=== PATIENT | male | born 1945 | race African-American/Black ===

== ENCOUNTER 2021-07-08 07:34 | Inpatient (IN) | payer MEDICARE ==
[~2021-07-08] VITALS: Ht 172.7 cm; Wt 85.7 kg
[~2021-07-08 07:34] MED LIST: LISI10TA PO; METF-380 PO; PRV20T GT
[2021-07-08] MEDS ORDERED: cefTRIAXone 1 GM PRE-MIX 50 ML IV ONE (08:00)
[2021-07-08] MEDS ORDERED: AZITHROMYCIN INJECTION 500 MG in NS (IVPB) 250 ML IV ONE (08:00)
[2021-07-08] MEDS ORDERED: NS IV 1000 ML 1,000 ML IV SCH ×2 (08:00→08:45)
--- NOTE | 2021-07-08 08:00 | ED Respiratory ---
General Chief Complaint: Respiratory Problems Stated Complaint: SOB Source: patient, spouse Exam Limitations: no limitations History of Present Illness Date Seen by Provider: July 08, 2021 Time Seen by Provider: 07:39 Initial Comments The patient presents to the ER by EMS from [facility] with chief complaint of shortness of air starting this morning. He felt a rattle in his chest. He has had an occasional cough nonproductive today. No fevers or chills chest pain nausea vomiting or diarrhea. He does have a history of chronic kidney disease followed by Dr. Enrique and primary care by Dr. Thomason. He is not on blood thinners. He has not had any recent periods of immobility, hemoptysis or leg swelling. No unexpected weight gain. He is not on a diuretic. He take his lisinopril this morning but he says he forgot to take his terazosin last night. EMS remarks that his oxygen saturations were 88% when they arrived and he had diminished bilateral breath sounds so they gave him a DuoNeb and after which his breath sounds improved as well as his oxygen saturations improved to the mid 90s. He quit smoking 10 years ago but still uses a vaporizer daily. Allergies and Home Medications Allergies Coded Allergies: No Known Drug Allergies (Unverified , 09/07/11) Patient Home Medication List Home Medication List Reviewed: Yes Lisinopril (Prinivil) 10 Mg Tablet, 10 MG PO, (Reported) Entered as Reported by: RAUL FARRIS on 09/07/11414 Metformin Hcl (Metformin 1000 Mg) 1,000 Mg Tablet, 1 EACH PO BID WITH MEALS, (Reported) Entered as Reported by: RAUL FARRIS on 09/07/11414 Pravastatin Sod (Pravachol (Non-Formulary)) 20 Mg Tab, 20 MG GT, (Reported) Entered as Reported by: RAUL FARRIS on 09/07/11414 Review of Systems Review of Systems Constitutional: No chills, No fever; malaise EENTM: No ear discharge, No ear pain Respiratory: cough; No phlegm; short of breath; No wheezing Past Jymbbhl-Wcmlzs-Gjpcur Hx Patient Social History Tobacco Use?: No Use of E-Cig and/or Vaping dev: Yes E-Cig or Vaping type used: Nicotine Use of E-Cig and/or Vaping Brown: Current Everyday User Substance use?: No Alcohol Use?: Yes Alcohol type: Hard Liquor Immunizations Up To Date Influenza Vaccine Up-to-Date: No; Not Current First/Initial COVID19 Vaccinat: N/A Second COVID19 Vaccination Gasper: N/A Third COVID19 Vaccination Date: N/A COVID19 Vaccine Data Entry Processor: N/A Physical Exam Vital Signs - First Documented 07/08/21 07:35 Temp 36.5 Pulse 121 Resp 26 B/P (MAP) 208/105 (139) Pulse Ox 94 O2 Delivery Room Air Capillary Refill : Height: '" Weight: lbs. oz. kg; BMI Method:Stated General Appearance: WD/WN, mild distress Eyes: Bilateral Eye Normal Inspection, Bilateral Eye PERRL, Bilateral Eye EOMI HEENT: PERRL/EOMI, normal ENT inspection Neck: full range of motion, supple, normal inspection Respiratory: respiratory distress (Mild, respiratory rate of 22), decreased breath sounds, crackles (Left base); No wheezing Cardiovascular: normal peripheral pulses, regular rate, rhythm, tachycardia (115) Gastrointestinal: normal bowel sounds, non tender, soft Extremities: non-tender, normal inspection, normal capillary refill Neurologic/Psychiatric: alert, normal mood/affect, oriented x 3 Skin: normal color, warm/dry Focused Exam Lactate Level 07/08/21 08:15: Lactic Acid Level 1.39 Lactic Acid Level Laboratory Tests Test 07/08/21 08:15 Lactic Acid Level 1.39 MMOL/L (0.50-2.00) Progress/Results/Core Measures Suspected Sepsis SIRS Temperature: Pulse: Respiratory Rate: Laboratory Tests 07/08/21 07:40: White Blood Count 7.1 Blood Pressure / Mean: 07/08/21 08:15: Lactic Acid Level 1.39 Laboratory Tests 07/08/21 07:40: Creatinine 1.64H, INR Comment 0.9, Platelet Count 226, Total Bilirubin 0.4 Results/Orders Lab Results Laboratory Tests Test 07/08/21 07:40 07/08/21 08:15 07/08/21 08:18 07/08/21 09:57 Range/Units White Blood Count 7.1 4.3-11.0 10^3/uL Red Blood Count 4.34 4.30-5.52 10^6/uL Hemoglobin 13.5 13.3-17.7 g/dL Hematocrit 42 40-54 % Mean Corpuscular Volume 97 80-99 fL Mean Corpuscular Hemoglobin 31 25-34 pg Mean Corpuscular Hemoglobin Concent 32 32-36 g/dL Red Cell Distribution Width 13.2 10.0-14.5 % Platelet Count 226 130-400 10^3/uL Mean Platelet Volume 10.7 9.0-12.2 fL Immature Granulocyte % (Auto) 0 % Neutrophils (%) (Auto) 69 42-75 % Lymphocytes (%) (Auto) 23 12-44 % Monocytes (%) (Auto) 7 0-12 % Eosinophils (%) (Auto) 1 0-10 % Basophils (%) (Auto) 0 0-10 % Neutrophils # (Auto) 4.9 1.8-7.8 10^3/uL Lymphocytes # (Auto) 1.7 1.0-4.0 10^3/uL Monocytes # (Auto) 0.5 0.0-1.0 10^3/uL Eosinophils # (Auto) 0.1 0.0-0.3 10^3/uL Basophils # (Auto) 0.0 0.0-0.1 10^3/uL Immature Granulocyte # (Auto) 0.0 0.0-0.1 10^3/uL Prothrombin Time 12.6 12.2-14.7 SEC INR Comment 0.9 0.8-1.4 Activated Partial Thromboplast Time 33 24-35 SEC D-Dimer 0.72 H 0.00-0.49 UG/ML Sodium Level 144 135-145 MMOL/L Potassium Level 4.6 3.6-5.0 MMOL/L Chloride Level 106 98-107 MMOL/L Carbon Dioxide Level 22 21-32 MMOL/L Anion Gap 16 H 5-14 MMOL/L Blood Urea Nitrogen 24 H 7-18 MG/DL Creatinine 1.64 H 0.60-1.30 MG/DL Estimat Glomerular Filtration Rate 43 BUN/Creatinine Ratio 15 Glucose Level 155 H 70-105 MG/DL Calcium Level 9.6 8.5-10.1 MG/DL Corrected Calcium 9.4 8.5-10.1 MG/DL Total Bilirubin 0.4 0.1-1.0 MG/DL Aspartate Amino Transf (AST/SGOT) 70 H 5-34 U/L Alanine Aminotransferase (ALT/SGPT) 55 0-55 U/L Alkaline Phosphatase 50 40-136 U/L Troponin I 0.034 H <0.028 NG/ML C-Reactive Protein High Sensitivity 0.15 0.00-0.50 MG/DL B-Type Natriuretic Peptide 128.9 H <100.0 PG/ML Total Protein 7.1 6.4-8.2 GM/DL Albumin 4.3 3.2-4.5 GM/DL Procalcitonin 0.04 <0.10 NG/ML Lactic Acid Level 1.39 0.50-2.00 MMOL/L Influenza Type A (RT-PCR) Not Detected Not Detecte Influenza Type B (RT-PCR) Not Detected Not Detecte SARS-CoV-2 RNA (RT-PCR) Not Detected Not Detecte Blood Gas Puncture Site RIGHT RAD Blood Gas Patient Temperature 36.5 Arterial Blood pH 7.39 7.37-7.43 Arterial Blood Partial Pressure CO2 38 35-45 MMHG Arterial Blood Partial Pressure O2 63 L 79-93 MMHG Arterial Blood HCO3 23 23-27 MMOL/L Arterial Blood Total CO2 23.7 21.0-31.0 MMOL/L Arterial Blood Oxygen Saturation 91 L 94-100 % Arterial Blood Base Excess -1.9 -2.5-2.5 MMOL/L Jon Test YES-POS Blood Gas Ventilator Setting NO Blood Gas Inspired Oxygen ROOM AIR Urine Color YELLOW Urine Clarity CLEAR Urine pH 6.0 5-9 Urine Specific Logan 1.025 H 1.016-1.022 Urine Protein 3+ H NEGATIVE Urine Glucose (UA) NEGATIVE NEGATIVE Urine Ketones NEGATIVE NEGATIVE Urine Nitrite NEGATIVE NEGATIVE Urine Bilirubin NEGATIVE NEGATIVE Urine Urobilinogen 0.2 < = 1.0 MG/DL Urine Leukocyte Esterase NEGATIVE NEGATIVE Urine RBC (Auto) NEGATIVE NEGATIVE Urine RBC RARE /HPF Urine WBC 2-5 /HPF Urine Squamous Epithelial Cells 0-2 /HPF Urine Crystals NONE /LPF Urine Bacteria FEW H /HPF Urine Casts NONE /LPF Urine Mucus NEGATIVE /LPF Urine Culture Indicated YES Test 07/08/21 13:52 Range/Units Troponin I 0.158 H <0.028 NG/ML My Orders Orders - KARLOS ALMANZAR Cbc With Automated Diff (07/08/21 07:52) Comprehensive Metabolic Panel (07/08/21 07:52) Blood Culture (07/08/21 07:52) Sputum Culture (07/08/21 07:52) Urinalysis (07/08/21 07:52) Urine Culture (07/08/21 07:52) Protime With Inr (07/08/21 07:52) Partial Thromboplastin Time (07/08/21 07:52) Chest 1 View, Ap/Pa Only (07/08/21 07:52) Ed Iv/Invasive Line Start (07/08/21 07:52) Ed Iv/Invasive Line Start (07/08/21 07:52) Ekg Tracing (07/08/21 07:52) Troponin I Rafiq (07/08/21 07:52) Vital Signs Adult Sepsis Patie Q15M (07/08/21 07:52) O2 (07/08/21 07:52) Remove Rings In Anticipation O (07/08/21 07:52) Lactic Acid Analyzer (07/08/21 07:52) Influenza A And B By Pcr (07/08/21 07:52) Ns Iv 1000 Ml (Sodium Chloride 0.9%) (07/08/21 08:00) Ceftriaxone 1 Gm Pre-Mix (Rocephin 1 Gm (07/08/21 08:00) Azithromycin Injection (Zithromax Inject (07/08/21 08:00) Covid 19 Inhouse Test (07/08/21 07:52) Bnp [place] (07/08/21 07:52) Hs C Reactive Protein (07/08/21 07:52) Procalcitonin (Pct) (07/08/21 07:52) Arterial Blood Gas (07/08/21 08:18) Ed Iv/Invasive Line Start (07/08/21 08:31) Ns Iv 1000 Ml (Sodium Chloride 0.9%) (07/08/21 08:45) Aspirin Chewable Tablet (Baby Aspirin Ch (07/08/21 11:30) Ct Angio Chest W (07/08/21 11:28) Fibrin Degradation Products (07/08/21 11:28) Iohexol Injection (Omnipaque 350 Mg/Ml 1 (07/08/21 12:00) Received Contrast (Hold Metformin- Contr (07/08/21 12:00) Sodium Chloride Flush (Catheter Flush Sy (07/08/21 12:00) Ns (Ivpb) (Sodium Chloride 0.9% Ivpb Bag (07/08/21 12:00) Troponin I Rafiq (07/08/21 13:51) Labetalol Injection (Normodyne Injection (07/08/21 14:15) Medications Given in ED Current Medications Medications Dose Ordered Sig/Ulises Route Start Time Stop Time Status Last Admin Dose Admin Aspirin 324 mg ONCE ONCE PO 07/08/21 11:30 07/08/21 11:31 DC 07/08/21 12:28 324 MG Azithromycin 500 mg/Sodium Chloride 255 ml @ 250 mls/hr ONCE ONCE IV 07/08/21 08:00 07/08/21 09:01 DC 07/08/21 11:09 250 MLS/HR Ceftriaxone Sodium/Dextrose 50 ml @ 100 mls/hr ONCE ONCE IV 07/08/21 08:00 07/08/21 08:29 DC 07/08/21 10:08 100 MLS/HR Iohexol 100 ml ONCE ONCE IV 07/08/21 12:00 07/08/21 12:01 DC 07/08/21 13:17 74 ML Labetalol HCl 20 mg ONCE ONCE IV 07/08/21 14:15 07/08/21 14:16 DC 07/08/21 14:46 20 MG Sodium Chloride 100 ml ONCE ONCE IV 07/08/21 12:00 07/08/21 12:01 DC 07/08/21 13:17 80 ML Vital Signs/I&O 07/08/21 07:35 Temp 36.5 Pulse 121 Resp 26 B/P (MAP) 208/105 (139) Pulse Ox 94 O2 Delivery Room Air Capillary Refill : Progress Note #1: Time: 07:59 Progress Note Given his presentation I am worried about a pneumonia however being a renal patient will also check some other labs. He has a history of diabetes so we will get an EKG for an atypical angina as well as troponin and BNP. He does not appear to be in fluid overload. We will start with a liter of fluids, septic work-up, Rocephin and azithromycin empirically. Progress Note #2: Time: 11:28 Progress Note He has a marginally detectable troponin and no evidence of pneumonia. Plan to get a CT angiogram to look for pulmonary embolism. We will get him aspirin to chew up and swallow. He is still not having any chest pain. Progress Note #3: Time: 13:46 Progress Note Patient is resting comfortably maintaining oxygen saturations in the upper 90s on room air with nonlabored breathing. He has had no other incidences of coughing. Is been up to go to the bathroom several times without dizziness, shortness of air or coughing fits. Lungs are clear. Rebound I recommend some azithromycin, nasal steroids and Afrin before sleep. Return precautions were given. Follow-up in the next 2 to 4 weeks with primary care for reevaluation ECG Initial ECG Impression Date: July 08, 2021 Initial ECG Impression Time: 08:09 Initial ECG Rate: 116 Initial ECG Rhythm: S.Tach Initial ECG Intervals: Normal Initial ECG Impression: Normal Comment Sinus tachycardia without clinically relevant ST elevation or depression. Diagnostic Imaging Diagonstic Imaging: Xray Plain Films/CT/US/NM/MRI: chest Comments [facility], [place] NAME: RAFFI HAWKINS [facility] REC#: [id number] PT STATUS: REG ER : 1945 PHYSICIAN: KARLOS ALMANZAR MD ADMIT DATE: 07/08/21/ER Draft Date of Exam:07/08/21 CHEST 1 VIEW, AP/PA ONLY Indication: Shortness of breath Frontal chest obtained at 9:04 a.m. and compared to 09/07/2011. Heart and mediastinal silhouette are normal in appearance. The lungs are clear. There is no pneumothorax or pleural fluid. Impression: Negative chest. Dictated on workstation # [id number] Dict: 07/08/21 0904 Trans: 07/08/21 0906 [facility] [id number] Interpreted by: JESS SHIELDS MD Electronically signed by: Reviewed: Reviewed by Me Diagonstic Imaging: CT Plain Films/CT/US/NM/MRI: chest Comments NAME: RAFFI HAWKINS MED REC#: [id number] PT STATUS: REG ER : 1945 PHYSICIAN: KARLOS ALMANZAR MD ADMIT DATE: 07/08/21/ER Draft Date of Exam:07/08/21 CT ANGIO CHEST W INDICATION: Cough, tachycardia, hypertension. TECHNIQUE: Multiple contiguous axial images were obtained through the chest after uneventful bolus administration of intravenous contrast. 3D reconstructed CTA MIP acquisitions were also performed. Auto Exposure Controls were utilized during the CT exam to meet ALARA standards for radiation dose reduction. COMPARISON: There is no previous study for comparison. FINDINGS: The pulmonary parenchymal vessels are well opacified with no CT evidence of pulmonary emboli. The thoracic aorta shows diffuse plaquing but no evidence of dissection or aneurysm. Great vessel origins are patent. There are no enlarged mediastinal or hilar nodes. There are no enlarged axillary nodes or chest wall masses. There are small bilateral pleural effusions. Visualized portions of the upper abdomen demonstrate fatty infiltration of the liver. Lung parenchymal windows demonstrate some motion artifact. There is a calcified granuloma in the right lower lobe. There is mild dependent atelectatic change in the lung bases on both sides. There is no douglas consolidation. There is a small nodule along the minor fissure on the right side, measuring about 4 x 5 mm. Nodules of this size do not necessarily require follow-up unless the patient is at high clinical risk. IMPRESSION: No CT evidence of pulmonary emboli or aortic dissection or aneurysm. There are small bilateral pleural effusions. There is some mild bibasilar atelectasis. There is a small calcified granuloma in the right lower lobe. There is a small 5 x 4 mm noncalcified pulmonary nodule in the right lung along the minor fissure, nodules of this size do not require follow-up unless the patient is at high clinical risk. There is incidental fatty infiltration of the liver. Dictated on workstation # [id number] Dict: 07/08/21 1322 Trans: 07/08/21 1336 [id number] Interpreted by: JESS SHIELDS MD Electronically signed by: Reviewed: Reviewed by Ca Departure Communication (Admissions) Time/Spoke to Admitting Phy: 15:[address] Koroma and she agrees to observe the patient on med telemetry. We will write bridge orders. Time/Spoke to Consulting Phy: 15:[address] Collado and he agrees to consult on the case for cardiology. Impression Primary Impression: Allergic rhinitis with postnasal drip Additional Impressions: Dyspnea Qualified Codes: R06.00 - Dyspnea, unspecified Elevated troponin I level Disposition: HOME, SELF-CARE Condition: Stable Admissions Decision to Admit Reason: Admit from ER (General) Decision to Admit/Date: July 08, 2021 Time/Decision to Admit Time: 15:15 Departure-Patient Inst. Referrals: BRUNA THOMASON MD, ABDUL M MD (PCP) Primary Care Physician Patient Instructions: Cough, Adult (DC) Add. Discharge Instructions: I suspect your cough this morning may have been caused by postnasal drip from a llergic rhinitis or a virus. Azithromycin daily for the next 4 days starting tomorrow will help with the cough. Resume taking your blood pressure medicine at the normal time. Nasal steroid such as Flonase/fluticasone 1 puff each nostril every day for the next 2 weeks. Afrin/oxymetazoline 1 puff each nostril before sleep for nasal congestion for the next 1 to 2 weeks. Make a follow-up appointment with your primary care doctor in the next 2 to 4 weeks for recheck. Return to the ER for shortness of air, chest pain or other worrisome symptoms. All discharge instructions reviewed with patient and/or family. Voiced understanding. Copy Copies To 1: BRUNA THOMASON MD, TITUS J July 08, 2021 08:00
[2021-07-08 08:11] LABS: BASOPHILS % (AUTO) 0 % (0-10); EOSINOPHILS # (AUTO) 0.1 10^3/uL (0.0-0.3); EOSINOPHILS % (AUTO) 1 % (0-10); HEMATOCRIT 42 % (40-54); HEMOGLOBIN 13.5 g/dL (13.3-17.7); LYMPHOCYTES # (AUTO) 1.7 10^3/uL (1.0-4.0); LYMPHOCYTES % (AUTO) 23 % (12-44); MEAN CORPUSCULAR HEMOGLOBIN 31 pg (25-34); MEAN CORPUSCULAR HGB CONC 32 g/dL (32-36); MEAN CORPUSCULAR VOLUME 97 fL (80-99); MEAN PLATELET VOLUME 10.7 fL (9.0-12.2); MONOCYTES # (AUTO) 0.5 10^3/uL (0.0-1.0); MONOCYTES % (AUTO) 7 % (0-12); NEUTROPHILS # (AUTO) 4.9 10^3/uL (1.8-7.8); NEUTROPHILS % (AUTO) 69 % (42-75); PLATELET COUNT 226 10^3/uL (130-400); WHITE BLOOD COUNT 7.1 10^3/uL (4.3-11.0)
[2021-07-08 08:16] LABS: ALBUMIN 4.3 GM/DL (3.2-4.5); POTASSIUM 4.6 MMOL/L (3.6-5.0)
[2021-07-08 08:17] LABS: CALCIUM 9.6 MG/DL (8.5-10.1); INR 0.9 (0.8-1.4); PROTHROMBIN TIME PATIENT 12.6 SEC (12.2-14.7)
[2021-07-08 08:19] LABS: TOTAL PROTEIN 7.1 GM/DL (6.4-8.2)
[2021-07-08 08:20] LABS: BILIRUBIN,TOTAL 0.4 MG/DL (0.1-1.0)
[2021-07-08 08:22] LABS: CREATININE SERUM 1.64 MG/DL (0.60-1.30)
[2021-07-08 08:25] LABS: ABG BASE EXCESS -1.9 MMOL/L (-2.5-2.5); ABG OXYGEN SATURATION 91 % (94-100); ABG PCO2 38 MMHG (35-45); ABG PH 7.39 (7.37-7.43); ABG PO2 63 MMHG (79-93); ABG TCO2 23.7 MMOL/L (21.0-31.0); ALLENS TEST YES-POS; INSPIRED O2 ROOM AIR; PATIENT TEMP 36.5; VENTILATOR NO
--- NOTE | 2021-07-08 09:06 | Diagnostic Imaging Report ---
Indication: Shortness of breath Frontal chest obtained at 9:04 a.m. and compared to 09/07/2011. Heart and mediastinal silhouette are normal in appearance. The lungs are clear. There is no pneumothorax or pleural fluid. Impression: Negative chest. Dictated by: Dictated on workstation # [id number]
[2021-07-08 10:15] LABS: BILIRUBIN,URINE NEGATIVE (NEGATIVE); CLARITY,URINE CLEAR; COLOR,URINE YELLOW; GLUCOSE, URINE (UA) NEGATIVE (NEGATIVE); KETONES,URINE NEGATIVE (NEGATIVE); LEUKOCYTE ESTERASE ,URINE NEGATIVE (NEGATIVE); NITRITE,URINE NEGATIVE (NEGATIVE); PROTEIN,URINE 3+ (NEGATIVE)
[2021-07-08 10:32] LABS: BACTERIA,URINE FEW /HPF; RBC,URINE RARE /HPF; SQUAMOUS EPITHELIAL CELL,UR 0-2 /HPF
[2021-07-08] MEDS ORDERED: ASPIRIN 81 MG CHEW (CHILDREN'S ASA) PO ONE (11:30)
[2021-07-08] MEDS ORDERED: CATHETER FLUSH 10 ML SYR IV PRN (12:00)
[2021-07-08] MEDS ORDERED: NS 100 ML (IVPB) BAG IV ONE (12:00)
[2021-07-08] MEDS ORDERED: IOHEXOL 350 MG/ML 100 ML (OMNIPAQUE 350) VIAL IV ONE (12:00)
[2021-07-08] MEDS ORDERED: HOLD METFORMIN - RECEIVED CONTRAST 20 ML VIAL IV SCH (12:00)
--- NOTE | 2021-07-08 13:36 | Diagnostic Imaging Report ---
INDICATION: Cough, tachycardia, hypertension. TECHNIQUE: Multiple contiguous axial images were obtained through the chest after uneventful bolus administration of intravenous contrast. 3D reconstructed CTA MIP acquisitions were also performed. Auto Exposure Controls were utilized during the CT exam to meet ALARA standards for radiation dose reduction. COMPARISON: There is no previous study for comparison. FINDINGS: The pulmonary parenchymal vessels are well opacified with no CT evidence of pulmonary emboli. The thoracic aorta shows diffuse plaquing but no evidence of dissection or aneurysm. Great vessel origins are patent. There are no enlarged mediastinal or hilar nodes. There are no enlarged axillary nodes or chest wall masses. There are small bilateral pleural effusions. Visualized portions of the upper abdomen demonstrate fatty infiltration of the liver. Lung parenchymal windows demonstrate some motion artifact. There is a calcified granuloma in the right lower lobe. There is mild dependent atelectatic change in the lung bases on both sides. There is no douglas consolidation. There is a small nodule along the minor fissure on the right side, measuring about 4 x 5 mm. Nodules of this size do not necessarily require follow-up unless the patient is at high clinical risk. IMPRESSION: No CT evidence of pulmonary emboli or aortic dissection or aneurysm. There are small bilateral pleural effusions. There is some mild bibasilar atelectasis. There is a small calcified granuloma in the right lower lobe. There is a small 5 x 4 mm noncalcified pulmonary nodule in the right lung along the minor fissure, nodules of this size do not require follow-up unless the patient is at high clinical risk. There is incidental fatty infiltration of the liver. Dictated by: Dictated on workstation # [id number]
[2021-07-08] MEDS ORDERED: LABETALOL HCL 20 MG/4 ML VIAL IV ONE (14:15)
[2021-07-08] MEDS ORDERED: LOSARTAN 25 MG (COZAAR) TAB PO SCH (16:30)
--- NOTE | 2021-07-08 16:36 | Consultation-Cardiology ---
HPI-Cardiology Cardiology Consultation Date of Consultation 07/08/21 Date of Admission Time Seen by Provider: 16:31 Indication: Elevated troponin HPI 76 years old gentleman with history of COPD, hypertension. Patient was at home when he became suddenly short of breath and was having gurgling sound from his breathing. His called EMS, by the time they arrived he was feeling better, he was given inhaler and brought to the emergency room. On my evaluation he was laying down in bed comfortably, denied any active pain or discomfort. No shortness of breath. He was noted to have elevation in troponin level that increased. Denied any chest pain. Home Medications & Allergies Allergies: Coded Allergies: No Known Drug Allergies (Unverified , 09/07/11) Home Medication List Reviewed: Yes UWY-[id number]-Wypfct Hx Patient Social History Marital Status: Employed/Student: retired Have you traveled recently?: No Alcohol Use?: Yes Past Medical History Discussed below Family Medical History Family Medical Hx Noncontributory Review of Systems-General Review of Systems Constitutional: see HPI; No chills, No fever; malaise EENTM: see HPI; No ear discharge, No ear pain Respiratory: see HPI, cough, dyspnea on exertion; No hemoptysis, No orthopnea, No phlegm; short of breath; No stridor; wheezing; No other Cardiovascular: no symptoms reported, see HPI; No chest pain, No edema, No Hx of Intervention, No palpitations, No syncope, No vascular heart diseas, No other Gastrointestinal: no symptoms reported, see HPI Genitourinary: no symptoms reported, see HPI Musculoskeletal: no symptoms reported, see HPI Skin: no symptoms reported, see HPI Psychiatric/Neurological: No Symptoms Reported, See HPI Reviewed Test Results Reviewed Test Results Lab Laboratory Tests Test 07/08/21 07:40 07/08/21 08:15 07/08/21 08:18 07/08/21 09:57 Range/Units White Blood Count 7.1 4.3-11.0 10^3/uL Red Blood Count 4.34 4.30-5.52 10^6/uL Hemoglobin 13.5 13.3-17.7 g/dL Hematocrit 42 40-54 % Mean Corpuscular Volume 97 80-99 fL Mean Corpuscular Hemoglobin 31 25-34 pg Mean Corpuscular Hemoglobin Concent 32 32-36 g/dL Red Cell Distribution Width 13.2 10.0-14.5 % Platelet Count 226 130-400 10^3/uL Mean Platelet Volume 10.7 9.0-12.2 fL Immature Granulocyte % (Auto) 0 % Neutrophils (%) (Auto) 69 42-75 % Lymphocytes (%) (Auto) 23 12-44 % Monocytes (%) (Auto) 7 0-12 % Eosinophils (%) (Auto) 1 0-10 % Basophils (%) (Auto) 0 0-10 % Neutrophils # (Auto) 4.9 1.8-7.8 10^3/uL Lymphocytes # (Auto) 1.7 1.0-4.0 10^3/uL Monocytes # (Auto) 0.5 0.0-1.0 10^3/uL Eosinophils # (Auto) 0.1 0.0-0.3 10^3/uL Basophils # (Auto) 0.0 0.0-0.1 10^3/uL Immature Granulocyte # (Auto) 0.0 0.0-0.1 10^3/uL Prothrombin Time 12.6 12.2-14.7 SEC INR Comment 0.9 0.8-1.4 Activated Partial Thromboplast Time 33 24-35 SEC D-Dimer 0.72 H 0.00-0.49 UG/ML Sodium Level 144 135-145 MMOL/L Potassium Level 4.6 3.6-5.0 MMOL/L Chloride Level 106 98-107 MMOL/L Carbon Dioxide Level 22 21-32 MMOL/L Anion Gap 16 H 5-14 MMOL/L Blood Urea Nitrogen 24 H 7-18 MG/DL Creatinine 1.64 H 0.60-1.30 MG/DL Estimat Glomerular Filtration Rate 43 BUN/Creatinine Ratio 15 Glucose Level 155 H 70-105 MG/DL Calcium Level 9.6 8.5-10.1 MG/DL Corrected Calcium 9.4 8.5-10.1 MG/DL Total Bilirubin 0.4 0.1-1.0 MG/DL Aspartate Amino Transf (AST/SGOT) 70 H 5-34 U/L Alanine Aminotransferase (ALT/SGPT) 55 0-55 U/L Alkaline Phosphatase 50 40-136 U/L Troponin I 0.034 H <0.028 NG/ML C-Reactive Protein High Sensitivity 0.15 0.00-0.50 MG/DL B-Type Natriuretic Peptide 128.9 H <100.0 PG/ML Total Protein 7.1 6.4-8.2 GM/DL Albumin 4.3 3.2-4.5 GM/DL Procalcitonin 0.04 <0.10 NG/ML Lactic Acid Level 1.39 0.50-2.00 MMOL/L Influenza Type A (RT-PCR) Not Detected Not Detecte Influenza Type B (RT-PCR) Not Detected Not Detecte SARS-CoV-2 RNA (RT-PCR) Not Detected Not Detecte Blood Gas Puncture Site RIGHT RAD Blood Gas Patient Temperature 36.5 Arterial Blood pH 7.39 7.37-7.43 Arterial Blood Partial Pressure CO2 38 35-45 MMHG Arterial Blood Partial Pressure O2 63 L 79-93 MMHG Arterial Blood HCO3 23 23-27 MMOL/L Arterial Blood Total CO2 23.7 21.0-31.0 MMOL/L Arterial Blood Oxygen Saturation 91 L 94-100 % Arterial Blood Base Excess -1.9 -2.5-2.5 MMOL/L Jon Test YES-POS Blood Gas Ventilator Setting NO Blood Gas Inspired Oxygen ROOM AIR Urine Color YELLOW Urine Clarity CLEAR Urine pH 6.0 5-9 Urine Specific Allen 1.025 H 1.016-1.022 Urine Protein 3+ H NEGATIVE Urine Glucose (UA) NEGATIVE NEGATIVE Urine Ketones NEGATIVE NEGATIVE Urine Nitrite NEGATIVE NEGATIVE Urine Bilirubin NEGATIVE NEGATIVE Urine Urobilinogen 0.2 < = 1.0 MG/DL Urine Leukocyte Esterase NEGATIVE NEGATIVE Urine RBC (Auto) NEGATIVE NEGATIVE Urine RBC RARE /HPF Urine WBC 2-5 /HPF Urine Squamous Epithelial Cells 0-2 /HPF Urine Crystals NONE /LPF Urine Bacteria FEW H /HPF Urine Casts NONE /LPF Urine Mucus NEGATIVE /LPF Urine Culture Indicated YES Test 07/08/21 13:52 07/08/21 16:26 Range/Units Troponin I 0.158 H <0.028 NG/ML Glucometer 122 H 70-110 MG/DL Physical Exam Physical Exam Vital Signs Vital Signs - First Documented 07/08/21 07:35 Temp 36.5 Pulse 121 Resp 26 B/P (MAP) 208/105 (139) Pulse Ox 94 O2 Delivery Room Air Capillary Refill : Less Than 3 Seconds Height, Weight, BMI Height: '" Weight: lbs. oz. kg; 27.00 BMI Method:Stated General Appearance: No Apparent Distress, WD/WN Eyes: Bilateral Eye Normal Inspection, Bilateral Eye PERRL, Bilateral Eye EOMI HEENT: PERRL/EOMI, TMs Normal, Normal ENT Inspection, Pharynx Normal, Moist Mucous Membranes Neck: Full Range of Motion, Normal Inspection, Non Tender, Supple, Carotid Bruit Respiratory: Chest Non Tender, Normal Breath Sounds, No Accessory Muscle Use, No Respiratory Distress Cardiovascular: Regular Rate, Rhythm, No Edema, No Gallop, No JVD, No Murmur, Normal Peripheral Pulses Gastrointestinal: Normal Bowel Sounds, No Organomegaly, No Pulsatile Mass, Non Tender, Soft Back: Normal Inspection, No CVA Tenderness, No Vertebral Tenderness Extremity: Normal Capillary Refill, Normal Inspection, Normal Range of Motion, Non Tender, No Calf Tenderness, No Pedal Edema Neurologic/Psychiatric: Alert, Oriented x3, No Motor/Sensory Deficits, Normal Mood/Affect Skin: Normal Color, Warm/Dry Lymphatic: No Adenopathy A/P-Cardiology Admission Diagnosis Hypertension Elevated troponin, type II myocardial infarction Acute respiratory insufficiency Acute renal insufficiency Assessment/Plan Hypertension, blood pressure is still elevated, initially was 200/100 on arrival to the emergency room. Currently around 1 60-1 70 systolic. I will start Toprol-XL 25 mg daily, losartan 25 mg daily and evaluate tolerance and response Evaluate 2D echo Mild elevation in troponin, no active chest pain or EKG changes. Probably type II myocardial infarction secondary to the shortness of breath with a mild transient hypoxemia reported by ambulance. It could be related to severe hypertension, continue to evaluate the trend and monitor EKG Shortness of breath, transient episode of wheezing and questionable exacerbation of COPD. Given inhaler, currently laying down in bed comfortably, no active wheezing or dyspnea Diabetes mellitus, followed and managed by primary care physician Acute on chronic renal insufficiency, monitor renal function Tobaccoism, using e-cigarette. Alcoholism, drink almost on a daily basis. PIERRE BALES MD July 08, 2021 16:36
[2021-07-08] MEDS ORDERED: TERA1CAP3 PO (16:55)
[2021-07-08] MEDS ORDERED: ACETAMINOPHEN 325 MG TABLET PO PRN (17:00)
[2021-07-08] MEDS ORDERED: NITROGLYCERIN 0.4 MG SL TABS BTL 25'S SL PRN (17:00)
[2021-07-08] MEDS ORDERED: morphine INJ 4 MG/ML 1 ML (VIAL/SYRINGE) IV PRN (17:00)
[2021-07-08] MEDS ORDERED: CATHETER FLUSH 10 ML SYR IVP PRN (17:00)
[2021-07-08] MEDS ORDERED: ONDANSETRON 4 MG/2 ML (SDV) Z0FRAN IVP PRN (17:00)
[2021-07-08 18:14] VITALS: BP 179/114
[2021-07-08] MEDS ORDERED: RT-ALBUTEROL/IPRATROPIUM 3 ML (DUONEB) VIAL INH PRN (18:30)
[2021-07-08 20:47] VITALS: BP 148/81
[2021-07-08] MEDS: TERAZOSIN 1 MG CAP (HYTRIN) PO SCH (20:54)
[2021-07-08] MEDS: CATHETER FLUSH 10 ML SYR IVP SCH (20:56)
[2021-07-08] MEDS ORDERED: RT-ALBUTEROL/IPRATROPIUM 3 ML (DUONEB) VIAL INH SCH (21:00)
[2021-07-09] VITALS (8 sets, daily range): BP systolic 128–222; BP diastolic 61–106
[2021-07-09 02:09] LABS: BASOPHILS % (AUTO) 1 % (0-10); EOSINOPHILS # (AUTO) 0.1 10^3/uL (0.0-0.3); EOSINOPHILS % (AUTO) 2 % (0-10); HEMATOCRIT 35 % (40-54); HEMOGLOBIN 11.4 g/dL (13.3-17.7); LYMPHOCYTES # (AUTO) 1.7 10^3/uL (1.0-4.0); LYMPHOCYTES % (AUTO) 30 % (12-44); MEAN CORPUSCULAR HEMOGLOBIN 32 pg (25-34); MEAN CORPUSCULAR HGB CONC 33 g/dL (32-36); MEAN CORPUSCULAR VOLUME 96 fL (80-99); MEAN PLATELET VOLUME 10.8 fL (9.0-12.2); MONOCYTES # (AUTO) 0.4 10^3/uL (0.0-1.0); MONOCYTES % (AUTO) 8 % (0-12); NEUTROPHILS # (AUTO) 3.5 10^3/uL (1.8-7.8); NEUTROPHILS % (AUTO) 61 % (42-75); PLATELET COUNT 165 10^3/uL (130-400); WHITE BLOOD COUNT 5.8 10^3/uL (4.3-11.0)
[2021-07-09] MEDS ORDERED: lisINopril 20 MG (PRINIVIL) TABLET ONE (05:10)
[2021-07-09] MEDS: lisINopril 20 MG (PRINIVIL) TABLET PO SCH (05:11)
[2021-07-09] MEDS: CATHETER FLUSH 10 ML SYR IVP SCH ×3 (05:19→23:09)
[2021-07-09 05:50] LABS: POTASSIUM 4.2 MMOL/L (3.6-5.0)
[2021-07-09 05:51] LABS: CALCIUM 8.3 MG/DL (8.5-10.1)
[2021-07-09 05:56] LABS: CREATININE SERUM 1.7 MG/DL (0.60-1.30)
[2021-07-09] MEDS ORDERED: ONDANSETRON 4 MG/2 ML (SDV) Z0FRAN IV PRN (06:15)
[2021-07-09] MEDS ORDERED: FUROSEMIDE 40 MG/4 ML INJ (LASIX) IVP ONE (06:15)
[2021-07-09] MEDS ORDERED: D5 1/2 NS 1000 ML IV SOLUTION 1,000 ML IV PRN (06:15)
[2021-07-09] MEDS ORDERED: ONDANSETRON 4 MG (ZOFRAN) ORAL DISSOLVE TAB SL PRN (06:15)
[2021-07-09] MEDS ORDERED: SENNA W/DOCUSATE (SENOKOT S) TABLET PO PRN (06:15)
[2021-07-09] MEDS ORDERED: LORazepam 1 MG (ATIVAN) TAB PO PRN (06:15)
[2021-07-09] MEDS ORDERED: ANTACID SUSP 30 ML UDC (MYLANTA) PO PRN (06:15)
[2021-07-09] MEDS ORDERED: 1/2 NS IV SOLUTION 1,000 ML IV PRN (06:15)
[2021-07-09] MEDS ORDERED: LORazepam INJ 2 MG/ML (ATIVAN) VIAL IV PRN (06:15)
[2021-07-09] MEDS ORDERED: LORazepam INJ 2 MG/ML (ATIVAN) VIAL IM/IV PRN (06:15)
[2021-07-09] MEDS ORDERED: ASPIRIN E.C. 81 MG (ECOTRIN) TAB PO ONE (06:19)
[2021-07-09] MEDS ORDERED: FUROSEMIDE 40 MG/4 ML INJ (LASIX) ONE (06:20)
[2021-07-09] MEDS ORDERED: SPIRONOLACTONE 25 MG (ALDACTONE) TAB ONE (06:20)
[2021-07-09] MEDS ORDERED: ISOSORBIDE MONONITRATE 30 MG (IMDUR) TAB PO ONE (06:22)
[2021-07-09] MEDS: ISOSORBIDE MONONITRATE 30 MG (IMDUR) TAB PO SCH (06:25)
[2021-07-09] MEDS: SPIRONOLACTONE 25 MG (ALDACTONE) TAB PO SCH (06:25)
[2021-07-09] MEDS: ASPIRIN E.C. 81 MG (ECOTRIN) TAB PO SCH (06:25)
[2021-07-09] MEDS: meTOproloL SUCCINATE 50 MG (TOPROL XL) TAB PO SCH (06:30)
[2021-07-09] MEDS ORDERED: meTOproloL SUCCINATE 50 MG (TOPROL XL) TAB PO ONE (06:30)
--- NOTE | 2021-07-09 08:44 | Cardiology Progress Note ---
Subjective Date Seen by Provider: July 09, 2021 Time Seen by Provider: 08:40 Subjective/Events-last exam Patient was seen at bedside, sitting comfortably, feeling better Had an episode of shortness of breath earlier this morning reported that he has transient episode of hallucination this morning Review of Systems General: No Chills, No Night Sweats, No Fatigue, No Malaise, No Appetite, No Other HEENT: No Head Aches, No Visual Changes, No Eye Pain, No Ear Pain, No Dysphasia, No Sinus Congestion, No Post Nasal Drip, No Sore Throat, No Other Pulmonary: Dyspnea; No Cough, No Pleuritic Chest Pain, No Other Cardiovascular: No: Chest Pain, Palpitations, Orthopnea, Paroxysmal Noc. Dyspnea, Edema, Lt Headedness, Other Focused Exam Lactate Level 07/08/21 08:15: Lactic Acid Level 1.39 Objective-Cardiology Exam Last Set of Vital Signs Vital Signs 07/09/21 07/09/21 07:24 08:28 Temp 36.9 Pulse 69 Resp 18 B/P (MAP) 162/75 (104) Pulse Ox 97 O2 Delivery Room Air O2 Flow Rate 0.00 I&O Intake and Output 07/09/21 00:00 Intake Total 540 ml Balance 540 ml Intake Oral 540 ml # Voids 4 # Bowel Movements 1 Daily Weight Change Yes, 2-13 lbs General: Alert, Oriented X3, Cooperative HEENT: Atraumatic, PERRLA Neck: Supple, No JVD, No Thyromegaly Lungs: Clear to Auscultation, Normal Air Movement Heart: Regular Rate, Normal S1, Normal S2, No Murmurs Abdomen: Normal Bowel Sounds, Soft, No Tenderness, No Hepatosplenomegaly, No Masses Extremities: No Clubbing, No Cyanosis, No Edema, Normal Pulses, No Tenderness/Swelling Skin: No Rashes, No Breakdown, No Significant Lesion Neuro: Normal Gait, Normal Speech, Strength at 5/5 X4 Ext, Normal Tone, Sensation Intact Psych/Mental Status: Mental Status NL, Mood NL Results Lab Laboratory Tests 07/09/21 01:50 07/09/21 04:56 A/P-Cardiology Admission Diagnosis Hypertension Elevated troponin, type II myocardial infarction Acute respiratory insufficiency Acute renal insufficiency Assessment/Plan Congestive heart failure, acute left ventricular systolic dysfunction, unknown etiology. Had mild elevation in troponin level, could be secondary to coronary artery disease versus cardiomyopathy. I am planning to proceed with cardiac catheterization in the morning tomorrow I am considering other causes for cardiomyopathy such as alcoholic cardiomyopathy. Patient was consulted on avoiding alcohol, I am stopping lisinopril at this point and in 48 hours planning to start Entresto. I will use losartan during the transition I added Aldactone and isosorbide to his medication Arranging for LifeVest Hypertension, monitor blood pressure after initiating the medication Shortness of breath, transient episode of wheezing and questionable exacerbation of COPD. Given inhaler, currently laying down in bed comfortably, no active wheezing or dyspnea Diabetes mellitus, followed and managed by primary care physician Acute on chronic renal insufficiency, monitor renal function Tobaccoism, using e-cigarette. Alcoholism, drink almost on a daily basis. Patient need to start on withdrawal protocol. reported some hallucinations this morning PIERRE BALES MD July 09, 2021 08:44
[2021-07-09] MEDS ORDERED: LISI2.5T13 PO (09:10)
[2021-07-09] MEDS ORDERED: TURM538C PO (09:10)
[2021-07-09] MEDS ORDERED: TERA2CAP4 PO (09:10)
[2021-07-09] MEDS ORDERED: FENO145T26 PO (09:10)
[2021-07-09] MEDS ORDERED: ANTI1CAP5 PO (09:10)
[2021-07-09] MEDS ORDERED: METF-399 PO (09:10)
[2021-07-09] MEDS ORDERED: [UNRECOGNIZED DRUG - OTHER] PO (09:10)
[2021-07-09] MEDS ORDERED: LORA10TA7 PO (09:10)
[2021-07-09] MEDS ORDERED: CRANBERRY PO (09:10)
[2021-07-09] MEDS ORDERED: FISH1CAP15 PO (09:10)
[2021-07-09] MEDS ORDERED: MULT-1136 PO (09:10)
[2021-07-09] MEDS ORDERED: ASPI-1238 PO (09:10)
[2021-07-09] MEDS ORDERED: MAGN400T39 PO (09:10)
--- NOTE | 2021-07-09 09:47 | History & Physical-Hospitalist ---
History of Present Illness HPI/Chief Complaint Pt was brought to [facility] ER as his wiife was concerned about his breathing. He is defers all history to his wiife. She states he made a funny noise like a rattle in hiis sleep and that worried her so she brought him to [facility] Er for evaluation. He was found to have an elevated troponin and was admitted forr further work up. He has no complainits today and states he feels much better than yesterday though he is unable to tell me how he felt yesterday. His reports a long history of CKD and HTN but that his current blood pressures are abnormally high for him. He otherwise has no complaints or concerns. Source: patient, family Exam Limitations: no limitations Date Seen 07/09/21 Time Seen by a Provider: 09:44 Attending Physician Wood Levy MD PCP Paradise Enrique MD Referring Physician Date of Admission July 08, 2021 at 15:30 Home Medications & Allergies Home Medications Reviewed patient Home Medication Reconciliation performed by pharmacy medication reconciliations apartment maintenance technician and/or nursing. Patients Allergies have been reviewed. Allergies Allergies Coded Allergies No Known Drug Allergies (Unverified09/07/11) Past Ptguerl-Nhusob-Oeaxrg Hx Patient Social History Marrital Status: Employed/Student: retired Tobacco Use?: No Use of E-Cig and/or Vaping dev: Yes E-Cig or Vaping type used: Nicotine Use of E-Cig and/or Vaping Brown: Current Everyday User Substance use?: No Alcohol Use?: Yes Alcohol type: Hard Liquor Additional alcohol type: GIN Alcohol Frequency: Daily Additional Alcohol Comments: 1/2 PINT EVERY OTHER DAY Pt feels they are or have been: No Immunizations Up To Date First/Initial COVID19 Vaccinat: N/A Second COVID19 Vaccination Gapser: N/A Tetanus Booster (TDap): Unknown Current Status Advance Directives: No Communicates: Verbally Primary Language: Faroese Preferred Spoken Language: Faroese Is interpretation needed?: No Past Medical History Hypertension Family Medical History Reviewed Nursing Family Hx No Pertinent Family Hx Review of Systems ROS-Unable to Obtain: would not really answer answes- deferred to for all questions Constitutional: see HPI Physical Exam Physical Exam Vital Signs Vital Signs - First Documented 07/08/21 07/09/21 07:35 07:24 Temp 36.5 Pulse 121 Resp 26 B/P (MAP) 208/105 (139) Pulse Ox 94 O2 Delivery Room Air O2 Flow Rate 0.00 Capillary Refill : Less Than 3 Seconds Height, Weight, BMI Height: '" Weight: lbs. oz. kg; 28.73 BMI Method:Stated General Appearance: No Apparent Distress, WD/WN Neck: Normal Inspection, Supple Respiratory: Lungs Clear, No Respiratory Distress Cardiovascular: Regular Rate, Rhythm, No JVD, No Murmur Gastrointestinal: Normal Bowel Sounds, Non Tender, Soft Extremity: Normal Capillary Refill, No Calf Tenderness, No Pedal Edema Neurologic/Psychiatric: Alert, Oriented x3, Normal Mood/Affect Skin: Normal Color, Warm/Dry Results Results/Procedures Labs Laboratory Tests 07/08/21 07:40 07/09/21 01:50 07/09/21 04:56 Patient resulted labs reviewed. Imaging: Reviewed Imaging Report Imaging [facility], [place] NAME: RAFFI HAWKINS [facility] REC#: [id number] PT STATUS: ADM Srinath : 1945 PHYSICIAN: KARLOS ALMANZAR MD ADMIT DATE: 07/08/21 Signed Date of Exam:07/08/21 CHEST 1 VIEW, AP/PA ONLY Indication: Shortness of breath Frontal chest obtained at 9:04 a.m. and compared to 09/07/2011. Heart and mediastinal silhouette are normal in appearance. The lungs are clear. There is no pneumothorax or pleural fluid. Impression: Negative chest. Dictated by: Dictated on workstation # [id number] Dict: 07/08/21903 Trans: 07/09/21 113 CV [id number] Interpreted by: JESS SHIELDS MD Electronically signed by: JESS SHIELDS MD 07/09/21 1134 [facility], [place] NAME: RAFFI HAWKINS [facility] REC#: [id number] PT STATUS: ADM Srinath : 1945 PHYSICIAN: KARLOS ALMANZAR MD ADMIT DATE: 07/08/21 Signed Date of Exam:07/08/21 CT ANGIO CHEST W INDICATION: Cough, tachycardia, hypertension. TECHNIQUE: Multiple contiguous axial images were obtained through the chest after uneventful bolus administration of intravenous contrast. 3D reconstructed CTA MIP acquisitions were also performed. Auto Exposure Controls were utilized during the CT exam to meet ALARA standards for radiation dose reduction. COMPARISON: There is no previous study for comparison. FINDINGS: The pulmonary parenchymal vessels are well opacified with no CT evidence of pulmonary emboli. The thoracic aorta shows diffuse plaquing but no evidence of dissection or aneurysm. Great vessel origins are patent. There are no enlarged mediastinal or hilar nodes. There are no enlarged axillary nodes or chest wall masses. There are small bilateral pleural effusions. Visualized portions of the upper abdomen demonstrate fatty infiltration of the liver. Lung parenchymal windows demonstrate some motion artifact. There is a calcified granuloma in the right lower lobe. There is mild dependent atelectatic change in the lung bases on both sides. There is no douglas consolidation. There is a small nodule along the minor fissure on the right side, measuring about 4 x 5 mm. Nodules of this size do not necessarily require follow-up unless the patient is at high clinical risk. IMPRESSION: No CT evidence of pulmonary emboli or aortic dissection or aneurysm. There are small bilateral pleural effusions. There is some mild bibasilar atelectasis. There is a small calcified granuloma in the right lower lobe. There is a small 5 x 4 mm noncalcified pulmonary nodule in the right lung along the minor fissure, nodules of this size do not require follow-up unless the patient is at high clinical risk. There is incidental fatty infiltration of the liver. Dictated by: Dictated on workstation # [id number] Dict: 07/08/21 1322 Trans: 07/08/21 1710 [id number] Interpreted by: JESS SHIELDS MD Electronically signed by: JESS SHIELDS MD 07/08/21 1710 Assessment/Plan Admission Diagnosis NSTEMI Admission Status: Inpatient Order (span 2 midnights) Reason for Inpatient Admission: see below Assessment and Plan NSTEMI Cardiomyopathy HTN Troponins trended up Cardiology consulted, appreciate recs EF 20%, no previously known diagnosis of cardiomyopathy Discussed with Dr Collado- plan is for cath in AM Telemetry CKD Per creaintine was 1.9 last check with GFR of 37 Near that baseline butt actually improved slightly Start IVF given plan for cath in AM Alcohol use Daily use, no evidence of withdrawal Banana Bag Diagnosis/Problems Diagnosis/Problems (1) Tobacco abuse Status: Chronic (2) NSTEMI (non-ST elevated myocardial infarction) Status: Acute (3) Cardiomyopathy Status: Acute Qualifiers: Cardiomyopathy type: other Qualified Codes: I42.8 - Other cardiomyopathies (4) CKD (chronic kidney disease) Status: Chronic Qualifiers: Chronic kidney disease stage 3 subtype: stage 3b (GFR 30-44) (5) HTN (hypertension) Status: Chronic Qualifiers: Hypertension type: primary hypertension Qualified Codes: I10 - Essential (primary) hypertension (6) Alcohol abuse Status: Chronic WOOD LEVY MD July 09, 2021 09:47
[2021-07-09] MEDS ORDERED: NS IV 1000 ML 1,000 ML ONE (10:04)
[2021-07-09] MEDS: NS IV 1000 ML 1,000 ML IV SCH ×2 (10:08→16:20)
[2021-07-09] MEDS: THIAMINE INJECTION 100 MG, FOLIC ACID INJECTION 1 MG, VITAMIN MULTI INJECTION 10 ML, MA... IV SCH ×5 (10:09)
[2021-07-09] MEDS: LOSARTAN 25 MG (COZAAR) TAB PO SCH (10:09)
[2021-07-09] MEDS: TERAZOSIN 1 MG CAP (HYTRIN) PO SCH (22:00)
[2021-07-10] VITALS (13 sets, daily range): BP systolic 132–169; BP diastolic 62–85
[2021-07-10] MEDS: CATHETER FLUSH 10 ML SYR IVP SCH ×3 (05:53→22:01)
[2021-07-10] MEDS: NS IV 1000 ML 1,000 ML IV SCH ×2 (05:53→14:12)
[2021-07-10] MEDS ORDERED: HEParin (CATH LAB) 2,000 ML IV ONE (06:51)
[2021-07-10] MEDS ORDERED: LIDOCAINE 1% INJ 20 ML VIAL ONE (06:51)
[2021-07-10] MEDS: lisINopril 20 MG (PRINIVIL) TABLET PO SCH ×2 (07:47→19:44)
[2021-07-10] MEDS: SPIRONOLACTONE 25 MG (ALDACTONE) TAB PO SCH ×2 (07:47→19:45)
[2021-07-10] MEDS: ASPIRIN E.C. 81 MG (ECOTRIN) TAB PO SCH (07:47)
[2021-07-10] MEDS: LOSARTAN 25 MG (COZAAR) TAB PO SCH ×2 (07:47→19:44)
[2021-07-10] MEDS: ISOSORBIDE MONONITRATE 30 MG (IMDUR) TAB PO SCH ×2 (07:47→19:44)
[2021-07-10] MEDS: meTOproloL SUCCINATE 50 MG (TOPROL XL) TAB PO SCH (08:41)
[2021-07-10] MEDS: THIAMINE INJECTION 100 MG, FOLIC ACID INJECTION 1 MG, VITAMIN MULTI INJECTION 10 ML, MA... IV SCH ×5 (09:26)
--- NOTE | 2021-07-10 13:18 | Cardiology Progress Note ---
Subjective Date Seen by Provider: July 10, 2021 Time Seen by Provider: 13:17 Subjective/Events-last exam Patient was seen at bedside laying down comfortably, feeling better at this time. Review of Systems General: No Chills, No Night Sweats, No Fatigue, No Malaise, No Appetite, No Other HEENT: No Head Aches, No Visual Changes, No Eye Pain, No Ear Pain, No Dysphasia, No Sinus Congestion, No Post Nasal Drip, No Sore Throat, No Other Pulmonary: No Dyspnea, No Cough, No Pleuritic Chest Pain, No Other Cardiovascular: No: Chest Pain, Palpitations, Orthopnea, Paroxysmal Noc. Dyspnea, Edema, Lt Headedness, Other Focused Exam Lactate Level 07/08/21 08:15: Lactic Acid Level 1.39 Objective-Cardiology Exam Last Set of Vital Signs Vital Signs 07/09/21 07/10/21 07:24 11:09 Temp 36.7 Pulse 60 Resp 17 B/P (MAP) 149/71 (97) Pulse Ox 98 O2 Delivery Room Air O2 Flow Rate 0.00 I&O Intake and Output 07/10/21 00:00 Intake Total 3385 ml Output Total 650 ml Balance 2735 ml Intake Oral 1080 ml IV Total 2305 ml Output Urine Total 650 ml # Voids 5 # Bowel Movements 2 General: Alert, Oriented X3, Cooperative HEENT: Atraumatic, PERRLA Neck: Supple, No JVD, No Thyromegaly Lungs: Clear to Auscultation, Normal Air Movement Heart: Regular Rate, Normal S1, Normal S2, No Murmurs Abdomen: Normal Bowel Sounds, Soft, No Tenderness, No Hepatosplenomegaly, No Masses Extremities: No Clubbing, No Cyanosis, No Edema, Normal Pulses, No Tenderness/Swelling Skin: No Rashes, No Breakdown, No Significant Lesion Neuro: Normal Gait, Normal Speech, Strength at 5/5 X4 Ext, Normal Tone, Sensation Intact Psych/Mental Status: Mental Status NL, Mood NL A/P-Cardiology Admission Diagnosis Hypertension Elevated troponin, type II myocardial infarction Acute respiratory insufficiency Acute renal insufficiency Assessment/Plan Congestive heart failure, acute left ventricular systolic dysfunction, unknown etiology. Had mild elevation in troponin level, could be secondary to coronary artery disease versus cardiomyopathy. I am planning to proceed with cardiac catheter ization in the morning tomorrow Planning for cardiac catheterization today. Continue to maximize medical therapy. Hypertension, monitor blood pressure after initiating the medication Shortness of breath, transient episode of wheezing and questionable exacerbation of COPD. Given inhaler, currently laying down in bed comfortably, no active wheezing or dyspnea Diabetes mellitus, followed and managed by primary care physician Acute on chronic renal insufficiency, monitor renal function Tobaccoism, using e-cigarette. Alcoholism, drink almost on a daily basis. Started on alcohol withdrawal protocol PIERRE BALES MD July 10, 2021 13:18
--- NOTE | 2021-07-10 13:20 | Conscious Sedation/ASA ---
Conscious Sedation Pre-Proced Time 13:20 ASA Score 3 For ASA 3 and 4: Consider anesthesia and medical clearance. Also, for patients with a history of failed moderate sedation consider anesthesia. Airway Lungs Heart ASA score ASA 1: a normal healthy patient ASA 2: a patient with a mild systemic disease (mid diabetes, controlled hypertension, obesity x ASA 3: a patient with a severe systemic disease that limits activity (angina, COPD, prior Myocardial infarction) ASA 4: a patient with an incapacitating disease that is a constant threat to life (CHF, renal failure) ASA 5: a moribund patient not expected to survive 24 hrs. (ruptured aneurysm) ASA 6: a declared brain- patient whose organs are being harvested. For emergent operations, add the letter E after the classification Mallampati Classification Grade 3 Sedation Plan Analgesia, Amnesia, Plan communicated to team members, Discussed options with patient/fam, Discussed risks with patient/fam The patient is an appropriate candidate to undergo the planned procedure, sedation, and anesthesia. The patient immediately re-assessed prior to indication. PIERRE BALES MD July 10, 2021 13:20
[2021-07-10] MEDS ORDERED: MIDAZOLAM 5 MG/5 ML (VERSED) VIAL ONE (14:37)
[2021-07-10] MEDS ORDERED: fentaNYL INJ 100 MCG/2 ML AMP ONE (14:37)
[2021-07-10] MEDS ORDERED: HEParin 1000 UNIT/ML (10ML VIAL) FOR BOLUS ONE (14:37)
[2021-07-10] MEDS ORDERED: NITRO DRIP 25000 MCG/D5W 250 ML IV ONE (14:37)
[2021-07-10] MEDS ORDERED: VERAPAMIL 5 MG/2 ML (CALAN) VIAL IV ONE (14:37)
[2021-07-10] MEDS ORDERED: NS IV 1000 ML 1,000 ML ONE (14:38)
--- NOTE | 2021-07-10 15:07 | Cardiac Cath Report ---
Cardiac Cath Report Physician (s)/Power Plant Operator Apprentice (s) Physician PIERRE BALES MD Pre-Procedure Diagnosis Pre-Procedure Diagnosis: Congestive heart failure Post-Procedure Note Procedure Start Date: July 10, 2021 Name of Procedure: Left heart catheterization Findings/Procedure Note PROCEDURE NOTE: 76-year-old gentleman admitted with congestive heart failure, palpitation, shortness of breath. Noted to be in severe cardiomyopathy, had mild elevation in troponin, scheduled for cardiac catheterization. After explaining the procedure to the patient, all pros and cons were explained, all questions were answered. The patient signed the consent and then he was placed on the cardiac catheterization laboratory. Groin was prepped SL fashion local anesthesia was used. Sheath placed in the right radial artery, [place] catheter was advanced to the left ventricular cavity, pressure was measured, pullback LV to aorta was done, engage the right and left coronary system, angiog melia was done. At the end of the procedure the sheath was removed. Vascular band was used FINDINGS: Hemodynamics LV 144/33, end-diastolic pressure of 33 Aorta 138/66 mean of 92 ANATOMY: Left Main is free of obstructive disease Left Anterior Descending has mild disease nonobstructive disease Left Circumflex has mild disease nonobstructive disease Right Coronary Artery is dominant artery with mild disease distally nonobstruc tive disease LV Gram was not done, pressure was measured CONCLUSION: 1. Mild coronary artery disease nonobstructive disease 2. 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 Anesthesia Type: Conscious Sedation Estimated blood loss (mL): 10 ml Contrast Amount: 20 ml Total Radiation Dose: 360 mGy Post-Procedure Diagnosis Post-operative diagnosis: Congestive heart failure, acute left ventricular systolic dysfunction, nonischemic cardiomyopathy Hypertension Hyperlipidemia Chronic kidney disease (1) Tobacco abuse (2) NSTEMI (non-ST elevated myocardial infarction) (3) Cardiomyopathy Qualifiers: Qualified Codes: I42.8 - Other cardiomyopathies (4) CKD (chronic kidney disease) Qualifiers: (5) HTN (hypertension) Qualifiers: Qualified Codes: I10 - Essential (primary) hypertension (6) Alcohol abuse PIERRE BALES MD July 10, 2021 15:06
[2021-07-10] MEDS ORDERED: NS IV 1000 ML 1,000 ML IV SCH (15:15)
--- NOTE | 2021-07-10 15:34 | Progress Note - Hospitalist ---
Subjective HPI/CC On Admission Date Seen by Provider: July 10, 2021 Time Seen by Provider: 10:30 Pt was [facility] to [facility] as his wiife was concerned about his breathing. He is defers all history to his wiife. She states he made a funny noise like a rattle in hiis sleep and that worried her so she brought him to [facility] for evaluation. He was found to have an elevated troponin and was admitted forr further work up. He has no complainits today and states he feels much better than yesterday though he is unable to tell me how he felt yesterday. His reports a long history of CKD and HTN but that his current blood pressures are abnormally high for him. He otherwise has no complaints or concerns. Subjective/Events-last exam Pt reports feeling well. No complaints. He is ready for his cath this afternoon. Focused Exam Lactate Level 07/08/21 08:15: Lactic Acid Level 1.39 Objective Exam Vital Signs Vital Signs Date Time Temp Pulse Resp B/P (MAP) Pulse Ox O2 Delivery O2 Flow Rate FiO2 07/10/21 15:15 146/72 (96) 07/10/21 13:00 61 07/10/21 11:09 36.7 17 98 Room Air 07/09/21 07:24 0.00 Capillary Refill : Less Than 3 Seconds General Appearance: No Apparent Distress, WD/WN Respiratory: Lungs Clear Cardiovascular: Regular Rate, Rhythm, No Murmur Neurologic/Psychiatric: Alert, Oriented x3 Results/Procedures Lab Patient resulted labs reviewed. Imaging: Reviewed Imaging Report Assessment/Plan Assessment and Plan Assess & Plan/Chief Complaint NSTEMI Cardiomyopathy- nonischemic HTN Troponins trended up- cath today Cardiology consulted, appreciate recs EF 20%, no previously known diagnosis of cardiomyopathy Telemetry Will need LifeVest prior to DC CKD Per creatinine was 1.9 last check with GFR of 37 Near that baseline butt actually improved slightly Continue IVF as was given contrast Alcohol use Daily use, no evidence of withdrawal Banana Bag Diagnosis/Problems Diagnosis/Problems (1) Tobacco abuse Status: Chronic (2) NSTEMI (non-ST elevated myocardial infarction) Status: Acute (3) Cardiomyopathy Status: Acute Qualifiers: Cardiomyopathy type: other Qualified Codes: I42.8 - Other cardiomyopathies (4) CKD (chronic kidney disease) Status: Chronic Qualifiers: Chronic kidney disease stage 3 subtype: stage 3b (GFR 30-44) (5) HTN (hypertension) Status: Chronic Qualifiers: Hypertension type: primary hypertension Qualified Codes: I10 - Essential (primary) hypertension (6) Alcohol abuse Status: Chronic Copy Copies To 1: WOOD Giang MD July 10, 2021 15:34
[2021-07-10] MEDS: FUROSEMIDE 40 MG/4 ML INJ (LASIX) IVP SCH (16:16)
[2021-07-10] MEDS: TERAZOSIN 1 MG CAP (HYTRIN) PO SCH (21:09)
[2021-07-11 00:16] VITALS: BP 155/83
[2021-07-11 04:06] VITALS: BP 150/79
[2021-07-11 06:15] LABS: HEMATOCRIT 31 % (40-54); MEAN CORPUSCULAR HEMOGLOBIN 31 pg (25-34); MEAN CORPUSCULAR HGB CONC 32 g/dL (32-36); MEAN CORPUSCULAR VOLUME 97 fL (80-99); MEAN PLATELET VOLUME 10.9 fL (9.0-12.2); PLATELET COUNT 160 10^3/uL (130-400); WHITE BLOOD COUNT 4.2 10^3/uL (4.3-11.0)
[2021-07-11] MEDS: CATHETER FLUSH 10 ML SYR IVP SCH ×2 (06:26→14:00)
[2021-07-11] MEDS: FUROSEMIDE 40 MG/4 ML INJ (LASIX) IVP SCH (06:26)
[2021-07-11 06:37] LABS: POTASSIUM 4.1 MMOL/L (3.6-5.0)
[2021-07-11 06:43] LABS: CREATININE SERUM 1.65 MG/DL (0.60-1.30)
[2021-07-11 07:37] VITALS: BP 153/67
[2021-07-11] MEDS: ASPIRIN E.C. 81 MG (ECOTRIN) TAB PO SCH (08:19)
[2021-07-11] MEDS: meTOproloL SUCCINATE 50 MG (TOPROL XL) TAB PO SCH (08:19)
[2021-07-11] MEDS: ISOSORBIDE MONONITRATE 30 MG (IMDUR) TAB PO SCH (08:19)
[2021-07-11] MEDS: SPIRONOLACTONE 25 MG (ALDACTONE) TAB PO SCH (08:19)
[2021-07-11] MEDS: THIAMINE INJECTION 100 MG, FOLIC ACID INJECTION 1 MG, VITAMIN MULTI INJECTION 10 ML, MA... IV SCH ×5 (08:30)
[2021-07-11] MEDS ORDERED: LISI20TA26 PO (08:56)
[2021-07-11] MEDS ORDERED: ISOS30TA82 PO (08:56)
[2021-07-11] MEDS ORDERED: METO50TA7 PO (08:56)
[2021-07-11] MEDS ORDERED: SPIR25TA5 PO (08:56)
--- NOTE | 2021-07-11 08:59 | Discharge Inst-Simple/Standard ---
Discharge Inst-Standard Discharge Medications New, Converted or Re-Newed RX: Transmitted to Pharmacy Patient Instructions/Follow Up Plan of Care/Instructions/FU: Please continue to take your medications as written. Please follow-up with your primary care doctor in the next week and with Dr. Dias in 2 weeks. Activity as Tolerated: Yes Discharge Diet: Low Sodium Diet, Cardiac Diet Return to The Hospital For: Chest pain, shortness of breath, weakness, leg swelling, if you feel you are getting worse. OWOD LEVY MD July 11, 2021 08:59
[2021-07-11] MEDS ORDERED: FUROSEMIDE 40 MG (LASIX) TAB PO SCH (09:00)
[2021-07-11] MEDS ORDERED: LOSARTAN 50 MG (COZAAR) TAB PO SCH (09:00)
[2021-07-11] MEDS ORDERED: meTOprolol SUCCINATE 100 MG (TOPROL XL) TAB PO SCH (09:00)
[2021-07-11] MEDS ORDERED: LOSARTAN 100 MG (COZAAR) TABLET PO SCH (09:00)
--- NOTE | 2021-07-11 09:02 | Discharge Summary ---
Diagnosis/Chief Complaint Date of Admission July 08, 2021 at 15:30 Date of Discharge Discharge Date: July 11, 2021 Admission Diagnosis NSTEMI Primary Care Paradise Enrique MD Discharge Diagnosis (1) Tobacco abuse Status: Chronic (2) NSTEMI (non-ST elevated myocardial infarction) Status: Acute (3) Cardiomyopathy Status: Acute (4) CKD (chronic kidney disease) Status: Chronic (5) HTN (hypertension) Status: Chronic (6) Alcohol abuse Status: Chronic Discharge Summary Discharge Physical Exam Allergies: Coded Allergies: No Known Drug Allergies (Unverified , 09/07/11) Vitals & I&Os Vital Signs Date Time Temp Pulse Resp B/P (MAP) Pulse Ox O2 Delivery O2 Flow Rate FiO2 07/11/21 13:42 55 07/11/21 11:15 36.6 17 139/61 (87) 98 Room Air 07/09/21 07:24 0.00 General Appearance: No Apparent Distress, WD/WN Respiratory: Lungs Clear Cardiovascular: Regular Rate, Rhythm Neurologic/Psychiatric: Alert, Oriented x3 Hospital Course Patient was admitted to the hospital secondary to elevated troponin. He was seen by cardiology and echo revealed an EF of around 25%. This was newly diagnosed this admission and he underwent cardiac cath to evaluate for ischemic cardiomyopathy. His cath was negative and no interventions were needed. He does have chronic daily alcohol use and his cardial myopathy was most likely due to that. Alcohol cessation was recommended. A LifeVest was arranged prior to discharge. He is to follow-up with Dr. Dias to follow-up this hospital stay. I did call and update his primary care provider, Dr. Thomason, of this hospital stay. Labs (last 24 hrs) Microbiology 07/08/21 Blood Culture - Final, Complete No growth 07/08/21 Urine Culture - Final, Complete >=3 Gram Positive Isolates Patient resulted labs reviewed. Pending Labs Imaging: Reviewed Imaging Report Discussion & Recommendations Discharge Planning: >30 minutes discharge planning Discharge Home Medications: Active Scripts Active Lisinopril 20 Mg Tablet 20 Mg PO DAILY Spironolactone 25 Mg Tablet 25 Mg PO DAILY Metoprolol Succinate 50 Mg Tab.er.24h 50 Mg PO DAILY Isosorbide Mononitrate ER (Isosorbide Mononitrate) 30 Mg Tab.er.24h 30 Mg PO DAILY Reported Magnesium (Magnesium Oxide) 400 Mg Magnesium Tablet 400 Mg PO Q48H [Cranberry W/Dmannose] 1 Ea PO DAILY Loratadine 10 Mg Tablet 10 Mg PO DAILY Turmeric (Turmeric Root Extract) 538 Mg Capsule 538 Mg PO DAILY Multivitamin 1 Each Tablet 1 Each PO DAILY Eye Health Adult 50+ Softgel (Antiox #11/Om3/Dha/Epa/Lut/Shalom) 250 Mg (90 Mg-160 Mg)-5 Mg-1 Mg Capsule 1 Each PO HS Fish Oil 1,200 mg Fish Oil (Fish Oil/Dha/Epa) 1,200 Mg-144 Mg-216 Mg Capsule 1 Each PO HS Aspirin EC (Aspirin) 81 Mg Tablet.dr 81 Mg PO HS Terazosin HCl 2 Mg Capsule 4 Mg PO HS TAKES 2 (2MG) CAPS Fenofibrate (Fenofibrate Nanocrystallized) 145 Mg Tablet 72.5 Mg PO HS TAKES OF A 145MG TAB Metformin HCl 1,000 Mg Tablet 1,000 Mg PO BIDPC Instructions to patient/family Please see electronic discharge instructions given to patient. Copy Copies To 1: BRUNA THOMASON MD Problem Qualifiers (1) Cardiomyopathy: Cardiomyopathy type: other Qualified Codes: I42.8 - Other cardiomyopathies (2) CKD (chronic kidney disease): Chronic kidney disease stage 3 subtype: stage 3b (GFR 30-44) (3) HTN (hypertension): Hypertension type: primary hypertension Qualified Codes: I10 - Essential (primary) hypertension WOOD LEVY MD July 11, 2021 09:01
--- NOTE | 2021-07-11 09:37 | Progress Note - Cardiology ---
Cardiology SOAP Progress Note Subjective: No cp or palp or syncope or shortness of breath No n/v/d Gen weakness Wants to go home today Objective: I&O/Vital Signs 07/10/21 07/11/21 07/11/21 07/11/21 21:58 00:16 01:00 04:06 Temp 36.5 36.6 Pulse 62 60 63 Resp 18 18 B/P (MAP) 155/83 (107) 150/79 (102) Pulse Ox 95 98 97 O2 Delivery Room Air Room Air Room Air 07/11/21 07/11/21 07/11/21 07:00 07:37 08:09 Temp 36.6 Pulse 66 63 66 Resp 18 B/P (MAP) 153/67 (95) Pulse Ox 96 O2 Delivery Room Air 07/11/21 00:00 Intake Total 2678 ml Balance 2678 ml Constitutional: AAO x 3; No apparent distress; well-developed Respiratory: No accessory muscle use; other (good, bilat air entry) Cardiovascular: regular rate-rhythm, S1 and S2, systolic murmur (soft ANGELIC at card base) Gastrointestional: No tender; soft, guarding; No rebound; audible bowel sounds Extremities: No clubbing, No cyanosis, No significant edema Neurologic/Psychiatric: other (moves all limbs equally) Skin: No rash on exposed areas, No ulcerations on exposed areas Results/Procedures: Labs Laboratory Tests 07/10/21 11:06: Glucometer 138H 07/10/21 20:14: Glucometer 115H 07/11/21 05:46: Glucometer 88, White Blood Count 4.2L, Red Blood Count 3.19L, Hemoglobin 10.0L, Hematocrit 31L, Mean Corpuscular Volume 97, Mean Corpuscular Hemoglobin 31, Mean Corpuscular Hemoglobin Concent 32, Red Cell Distribution Width 13.2, Platelet Count 160, Mean Platelet Volume 10.9, Sodium Level 141, Potassium Level 4.1, Chloride Level 110H, Carbon Dioxide Level 19L, Anion Gap 12, Blood Urea Nitrogen 19H, Creatinine 1.65H, Estimat Glomerular Filtration Rate 43, BUN/Creatinine Ratio 12, Glucose Level 87, Calcium Level 8.0L, Magnesium Level 2.1 Microbiology 07/08/21 Blood Culture - Preliminary, Resulted No growth 5/2/22 Urine Culture - Final, Complete >=3 Gram Positive Isolates Laboratory Tests 07/11/21 05:46 A/P: Assessment: Ac systolic CHF - echo 07/08/21: LVEF 20-25%, mild MR, PASP 30-35 mmHg - card cath by Dr Collado on 07/10/21: mild MR, LVEDP 33 mmHg Severe hypertension, improved Diabetes mellitus II - followed and managed by primary care physician CKD 3-4 - managed by pcp and by patient's battery charger tester Tobaccoism, using e-cigarette Alcoholism, drink almost on a daily basis - managed by the Hospitalist renae (Dr Perrin) Plan: * I interviewed and examined him and reviewed his hospital records. I discussed his CV issues with him and his in detail and answered question * Advised to quit alcohol and tobacco/e-cig use immediately and completely * LifeVest * Treat with ROSHAN/ARB, furosemide, spironolactone, beta-dimitri * Consider adding SGLT-2 inhib as an outpat if above treatment is tolerated well * Repeat labs in 3-5 days * Outpt cardiac f/u advised in a week * Continue close f/u with pcp and battery charger tester * I discussed his case in detail with Dr Perrin (his Hospitalist) on the phone today GANGA GAN MD FACP [facility] July 11, 2021 09:37
[2021-07-11 11:15] VITALS: BP 139/61
== END 2021-07-11 16:50 | disposition home or self-care (01) | DRG 280 ==
LOC: EDUNIT# 07:34 → ER 07:35 → 4TH 15:30 → OBSVTOIN 07-09 09:44 → CSD 07-10 15:18 → 4TH 07-10 18:20
PROVIDERS: ADMIT Family Medicine; ATTEND Family Medicine
PROC: 4A023N7 Measurement of Cardiac Sampling and Pressure, Left Heart, Percutaneous Approach (ICD-10-PCS; principal; 2021-07-10)
PROC: B2111ZZ Fluoroscopy of Multiple Coronary Arteries using Low Osmolar Contrast (ICD-10-PCS; 2021-07-10)
PROC: B2151ZZ Fluoroscopy of Left Heart using Low Osmolar Contrast (ICD-10-PCS; 2021-07-10)
DX: I13.0 Hypertensive heart and chronic kidney disease with heart failure and stage 1 through stage 4 chronic kidney disease, or unspecified chronic kidney disease (principal); I50.21 Acute systolic (congestive) heart failure; I21.A1 Myocardial infarction type 2; I42.8 Other cardiomyopathies; F17.210 Nicotine dependence, cigarettes, uncomplicated; J30.89 Other allergic rhinitis; N18.32 Chronic kidney disease, stage 3b; I25.10 Atherosclerotic heart disease of native coronary artery without angina pectoris; E11.22 Type 2 diabetes mellitus with diabetic chronic kidney disease; R06.89 Other abnormalities of breathing; F10.20 Alcohol dependence, uncomplicated; Z20.822 Contact with and (suspected) exposure to COVID-19
CPT/HCPCS: 36415; 71045; 71275; 80048; 80053; 80061; 81000; 82805; 82947; 83605; 83735; 83880; 84145; 84443; 84484; 85025; 85027; 85379; 85610; 85730; 86141; 87040; 87088; 87636; 93005; 93306; 93458; 94760; G0378

== ENCOUNTER → 2021-08-27 | Outpatient (CLI) | payer MEDICARE ==
[~2021-08-27] MED LIST changes: +ANTI1CAP5 PO; +ASPI-1238 PO; +CRANBERRY PO; +FENO145T26 PO; +FISH1CAP15 PO; +ISOS30TA82 PO; +LISI2.5T13 PO; +LISI20TA26 PO; +LORA10TA7 PO; +MAGN400T39 PO; +METF-399 PO; +METO50TA7 PO; +MULT-1136 PO; +SPIR25TA5 PO; +TERA1CAP3 PO; +TERA2CAP4 PO; +TURM538C PO; +[UNRECOGNIZED DRUG - OTHER] PO
--- NOTE | 2021-08-27 12:37 | Diagnostic Imaging Report ---
PROCEDURE: US Renal Bilateral. TECHNIQUE: Multiple Real-time grayscale images were obtained over the kidneys in various projections bilaterally. INDICATION: Chronic kidney disease, stage III. FINDINGS: The right kidney measures 10.6 x 5.8 x 6.5 cm and the left kidney measures 10.5 x 4.5 x 5.1 cm. The cortical thickness and echogenicity are normal bilaterally. No calculi are seen. There is no hydronephrosis. The prevoid bladder volume is 169 mL. The post void volume is 40 mL. Bilateral ureteral jets were visualized. IMPRESSION: Unremarkable renal ultrasound. Dictated by: Dictated on workstation # [id number]
== END ==
LOC: RAD 09:09
PROVIDERS: ATTEND Internal Medicine Nephrology
DX: N18.32 Chronic kidney disease, stage 3b (principal)
CPT/HCPCS: 76770